=== PATIENT | male | born 1985 | race Caucasian/White ===

== ENCOUNTER 2024-03-06 09:37 | Outpatient (AMB) | payer OTHER, SELFPAY ==
--- NOTE | 2024-03-06 09:39 | A.OFFPC_ITS ---
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 - [facility], Dr. Romina farrell Last office visit/CPE - 12/27/2021 Last lab work - Several years ago Acute issue(s) - Anxiety - On Sertraline 50 mg daily. He ran out of refills about a week ago and has been taking same does from his who takes same medication. His anxiety has been controlled. No depression. - Not followed by a therapist or psychia trist and never been followed by them Past Medical History - Anxiety - Acid reflux Surgical History - None Family History - Mom: HTN - MGF: Alcoholism Social History - Nonsmoker. Does not vape. Drinks 2 bee rs on weekends. No recreational drugs - He has not been making healthy dietary choices. His work requires constant lifting and going up and down stairs; no structured exercise. He requests a ref erral to a dietitian - He notes history of poor sleep; troubl e falling and staying asleep; he has a 4-month-old child which makes sleeping challenging Health maintenance - Last eye exam was more than 10 years a go; referred to Ophthalmology - Last dental visit was 3 years ago; enc ouraged to schedule an appointment with his dentist for routine dental care. - Last tetanus vaccine was 5 years ago - He has not been vaccinated for the flu this season and plans to get vaccinated at the pharmacy [facility] Medical History (Updated 12/13/24 @ 10:14 by Suni Logan CNP) Acid reflux Anxiety Family History (Updated 03/06/24 @ 09:45 by Samantha Willams) Mother No family history of mental disorder Hypertension Sister No family history of mental disorder Multiple sclerosis Social History (Updated 12/27/21 @ 14:07 by DAJA Mandujano) Household Members: Spouse and Children Housing: House Alcohol intake: current Patient Tobacco Use Status: Never used Tobacco e-Cigarette/Vaping Use: Never Used Current occupational status: employed Current occupation: Accounts Payable Or Receivable Clerk Cognitive needs: No Hearing needs: No Vision needs: No Questionnaire PHQ-9 Over the last 2 weeks, how often have you been bothered by any of the following problems? 1. Little interest or pleasure in doing things: not at all 2. Feeling down, depressed, or hopeless: not at all 3. Trouble falling or staying asleep, or sleeping too much: several days 4. Feeling tired or having little energy: several days 5. Poor appetite or overeating: several days 6. Feeling bad about yourself - or that you are a failure or have let yourself or your family down: not at all 7. Trouble concentrating on things, such as reading the newspaper or watching television: not at all 8. Moving or speaking so slowly that other people could have noticed. Or the opposite - being so fidgety or restless that you have been moving around a lot more than usual: not at all 9. Thoughts that you would be better off or of hurting yourself in some way: not at all Total score: 3 Depression Screening Interpretation: Negative Depression Screening Done: Yes 78212 - PHQ-9 Billing: Yes Source: Developed by Drs. Alonzo Call, Angelique Alva, Michel Vaughn and colleagues, with an educational candido from [employer]. Thrive Questionnaire Date Thrive assessed: 03/06/24 I am a: Patient What is your living situation today?: I have a steady place to live Within the past 12 months, did the food you bought not last and you didn't have the money to get more?: Never true Within the past 12 months, did you worry whether your food would run out before you got money to buy more?: Never true Do you have trouble paying for medicines?: No Do you have trouble getting transportation to medical appointments?: No Do you have trouble paying your heating and electricity bill?: No Do you have trouble taking care of your child, family member or friend?: No Do you have trouble with day-to-day activities such as bathing, preparing meals, shopping, managing finances, etc.?: No Are you currently unemployed and looking for a job?: No Are you interested in more education?: No Please select the resources that you would like help with: None Currently or been in a relationship where the following occur: No concerns reported THRIVE Score: 0 AUDIT C Alcohol Use Questionnaire (AUDIT-C) 1. How often do you have a drink containing alcohol?: Monthly or less 2. How many drinks containing alcohol do you have on a typical day when you are drinking?: 1 or 2 3. How often do you have six or more drinks on one occasion?: Never Total Score: 1 Score Reviewed/Action Taken: Yes SJ-7 AMB Questionnaire SJ-7 Date SJ - 7 assessed: 03/06/24 Feeling nervous, anxious, or on edge: 1 = Several days Not being able to stop or control worryin = Not at all Worrying too much about different things: 0 = Not at all Trouble relaxin = Not at all Being so restless that it is hard to sit still: 0 = Not at all Becoming easily annoyed or irritable: 0 = Not at all Feeling afraid as if something awful might happen: 0 = Not at all Total SJ-7 score (0-4 normal; 5-9 mild; 10-14 moderate; 15-21 severe): 1 Source: Developed by Drs. Alonzo Call, Angelique Alva, Michel Vaughn and colleagues, with an educational candido from [employer]. SJ-7 Assessment Billing SJ-7 Assessment Tool: SJ-7 Assessment 73837 Review of Systems Const Details: Denies chills, Denies fatigue, Denies fever(s), Denies headache(s) and Denies weakness HEENT Denies change in vision, Denies dizziness, Denies headache(s), Denies hearing loss, Denies nasal congestion, Denies sinus pain, Denies sinus pressure and Denies sore throat Card Denies chest pain, Denies lightheadedness, Denies dyspnea and Denies other (palpitations) Resp Denies cough, Denies dyspnea and Denies wheezing GI Denies abdominal pain, Denies melena, Denies hematochezia, Denies change in bowel habits, Denies dyspepsia and Denies nausea Denies hematuria and Denies dysuria Musc Denies abnormal gait, Denies myalgias, Denies arthralgias, Denies numbness and Denies tingling Skin/Breast Denies rash, Denies unusual bruising and Denies wounds Neuro Denies abnormal gait, Denies dizziness, Denies headache(s), Denies memory loss, Denies numbness, Denies Sensory deficit (Neuro), Denies tingling and Denies weakness Psych Denies anxiety, Denies depression and Denies memory loss Endo Denies cold intolerance, Denies fatigue, Denies heat intolerance, Denies polydipsia and Denies polyuria Cortes/Lymph Denies easy bleeding and Denies easy bruising Aller/Immun Denies wheezing Physical exam (Primary Care) Vital Signs: Last Vital Signs Temp 98.2 F 03/06/24 09:46 Pulse 71 03/06/24 09:46 Resp 16 03/06/24 09:46 BP 122/77 03/06/24 09:46 Pulse Ox 96 03/06/24 09:46 Oxygen Delivery Method Room Air 03/06/24 09:46 BMI result Body Mass Index 30.8 Tobacco/Smoking Status: Tobacco use Status Tobacco use date assessed 03/06/24 03/06/24 09:50 Patient Tobacco Use Status Never used Tobacco 03/06/24 09:43 e-Cigarette/Vaping Use Never Used 03/06/24 09:43 PHQ-9: PHQ-9 Score PHQ-9: Total score 3 03/06/24 11:36 Depression Screening Interpretation: Negative Thrive Assessment: Date of Thrive Assessment Date Thrive assessed 03/06/24 03/06/24 09:43 Currently or been in a relationship where the following occur: No concerns reported Const Other: General: no acute distress, well developed, alert and awake Nutritional Appearance: well nourished Orientation/consciousness: patient oriented x3 HENMT Head: Yes normocephalic and Yes atraumatic Ears: hearing grossly normal bilaterally and TM's normal bilaterally General nose exam: Normal external nose present and Normal nares present Mouth: Normal oral and palatal mucosa present and moist mucous membranes Teeth and gingiva: dentition normal Throat: Yes oropharynx normal Eyes Pupils: Equal, round and reactive pupils present and Pupil accommodation reflex normal EOM: EOMs intact bilaterally Neck Neck: Yes normal visual inspection, Yes no lymphadenopathy and Yes trachea midline Thyroid: Thyroid normal Carotids: no bruits Lymphatic: no lymphadenopathy noted Chest Chest palpation & inspection: normal inspection of the chest Resp Effort & Inspection: normal respiratory effort Auscultation: clear to auscultation bilaterally Cardio Rate: regular rate Rhythm: regular rhythm Heart sounds: S1 normal heart sound present, S2 normal heart sound present, no gallops, no murmurs and no rubs Bruits: no abdominal aortic bruits and no carotid bruits GI Palpation (GI): No Abdominal aortic bruit present, Soft to palpation, nontender, No hepatosplenomegaly present and No Rebound tenderness present Auscultation: normal bowel sounds General: Yes no CVA tenderness Back/Spine/Pelvis Back: no CVA tenderness Cervical Spine: cervical ROM normal and No Cervical spine tenderness Thoracic/Lumbar Spine: thoraco-lumbar ROM normal, No pain with thoraco-lumbar ROM, No thoracic spinal tenderness and No lumbar spinal tenderness Skin General: warm and dry. Normal skin color. Normal skin turgor Lesions: no lesions Rashes: no rashes Trauma: no lacerations or abrasions Wounds: no wounds Nails: normal Neuro General: patient oriented x3, gait normal and CN's II-XI intact bilaterally Cranial nerves: Yes Equal, round and reactive pupils present Cognition (Neuro): normal cognition Gait exam (Neuro): Normal gait present Motor exam (neuro): 5/5 motor strength present throughout Sensory Exam: No Sensory deficit (Neuro) Deep tendon reflexes (DTR's): Right patellar reflex intensity grade: 2+ and Left patellar reflex intensity grade: 2+ Extrem General: Yes normal to inspection, No edema and No calf tenderness Psych Appearance: grossly normal Affect: normal affect Attitude: cooperative Thought process: Normal thought process present Coding Level of Care Code Est Pt Level 3 (92335) New Pt Prev Care 18-39yr(35131 Diagnoses Normal physical exam Z00.00 Anxiety F41.9 Sleep disturbance G47.9 Obesity (BMI 30.0-34.9) E66.811 Routine eye exam Z01.00 Laboratory tests ordered as part of a complete physical exam (CPE) Z00.00 Additional Codes SJ-7 Assessment Billing - SJ-7 Assessment Tool: SJ-7 Assessment 04641 ([id number]) PHQ-9 - 53432 - PHQ-9 Billing: Yes ([id number]) Assessment & Plan Assessment & Plan (1) Normal physical exam: Code(s): Z00.00 - Encounter for general adult medical examination without abnormal findings Category: Medical Plan: No significant physical restrictions or limitations noted. Healthy diet and routine exercise encouraged. Advised to get fasting lab work done and follow-up in 2-3 weeks for telehealth visit for labs review or return sooner with symptoms or concerns. Verbalized understanding and agreed with the plan. (2) Anxiety: Code(s): F41.9 - Anxiety disorder, unspecified Category: Medical Plan: Controlled anxiety symptoms. Continue current treatment regimen. Sertraline refill sent to the pharmacy. Monitor anxiety symptoms and follow-up with worsening or new symptoms. (3) Sleep disturbance: Code(s): G47.9 - Sleep disorder, unspecified Category: Medical Plan: Instructed sleep hygiene and routine exercise encouraged to promote sleep. Follow-up with worsening or new symptoms. Verbalized understanding and agreed with the plan. (4) Obesity (BMI 30.0-34.9): Code(s): E66.811 - Obesity, class 1 Category: Medical Plan: He currently weighs 215 lb, BMI is 30.8. He has been making poor dietary choices. Healthy diet and routine exercise encouraged. Referred to [facility] dietitian. (5) Routine eye exam: Code(s): Z01.00 - Encounter for examination of eyes and vision without abnormal findings Category: Medical Plan: Last eye exam was over 10 years ago. Referred to Ophthalmology for routine eye exam. (6) Laboratory tests ordered as part of a complete physical exam (CPE): Code(s): Z00.00 - Encounter for general adult medical examination without abnormal findings Category: Medical Plan: Fasting labs ordered as part of a complete physical exam. Advised to fast for at least 10 hours before getting labs drawn. May drink water Verbalized understanding and agreed with treatment plan. Orders: Orders Complete Blood Count Auto Diff Today Z00.00 - Encounter for general adult medical examination without abnormal findings TSH reflex Free T4 Today Z00.00 - Encounter for general adult medical examination without abnormal findings UA CC w/rflx Micro + Cult Today Z00.00 - Encounter for general adult medical examination without abnormal findings Comprehensive Grants. Panel Fast Today Z00.00 - Encounter for general adult medical examination without abnormal findings Lipid Panel Today Z00.00 - Encounter for general adult medical examination without abnormal findings Referrals Nutrition/Dietitian Referral E66.811 - Obesity, class 1 Ophthalmology Referral Z01.00 - Encounter for examination of eyes and vision without abnormal findings Medications: Refilled sertraline (Zoloft) 50 mg PO DAILY 90 tabs 1RF Z00.00 - Encounter for general adult medical examination without abnormal findings
[2024-03-06 09:46] VITALS: BP 122/77; PULSE 71; RESP 16; TEMP 36.8; O2SAT 96; BMI 30.8
== END 2024-03-06 13:13 | disposition home or self-care (01) ==
PROVIDERS: PCP Hospitalist; Visit Provider Nurse Practitioner Family
DX: Z00.00 Encounter for general adult medical examination without abnormal findings (principal); F41.9 Anxiety disorder, unspecified; E66.811 Obesity, class 1; Z68.30 Body mass index [BMI] 30.0-30.9, adult; G47.9 Sleep disorder, unspecified

== ENCOUNTER → 2024-03-06 09:37 | Outpatient (BNVA) | payer OTHER, SELFPAY | PROVIDERS: PCP Hospitalist; Visit Provider Nurse Practitioner Family | DX: Z00.00 Encounter for general adult medical examination without abnormal findings (principal); F41.9 Anxiety disorder, unspecified; G47.9 Sleep disorder, unspecified; E66.811 Obesity, class 1 | CPT/HCPCS: 96127; 99385 ==

== ENCOUNTER 2024-07-17 11:48 | Outpatient (AMB) | payer OTHER, SELFPAY ==
--- NOTE | 2024-07-17 11:51 | MHC.PC.OV ---
Vital Signs 07/17/24 11:54 Height 5 ft 10 in Weight 219 lb 4 oz BMI 31.5 BP 122/75 Blood Pressure Location Lt brachial Position Sitting Respiration 16 Pulse 82 Pulse Source Pulse Oximeter Temp 98.7 F Temp Source Oral Pulse Oximetry (%) 99 Oxygen Delivery Method Room Air Intake Visit Reasons: Arm pain Intake Note: patient here c/o right shoulder and arm pain for 3 weeks. 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 Allergies No Known Allergies Allergy (Verified 07/17/24 12:13) Medication List - Last Reconciled 07/17/24 by Suni Logan CNP sertraline (Zoloft) 50 mg PO DAILY Tobacco use date assessed: 07/17/24 Dental Screening Dental Screen Date: 07/17/24 Did you have a dental visit in the last 12 months?: No Did you have a dental problem in the last 6 months where you did not have access to dental care?: No Was dental information given to patient?: Patient has dentist HPI HPI Comments History of Present Illness Details 38-year-old male presents with complaints of right shoulder sharp pain which radiates to the entire right arm. His symptoms have been ongoing for the past 3 weeks. He experiences the pain only when picking up objects or his children. He wakes with sharp pain to his shoulder and numbness to his right hand when lying on his right side. He is right-handed. 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 He denies fall, injury, or trauma. He denies acute symptoms at this time. [facility] Medical History (Updated 07/17/24 @ 12:29 by Suni Logan CNP) Acid reflux Anxiety Family History (Updated 03/06/24 @ 09:45 by Samantha Willams MA) Mother No family history of mental disorder Hypertension Sister No family history of mental disorder Multiple sclerosis Social History (Updated 12/27/21 @ 14:07 by DAJA Mandujano) Household Members: Spouse and Children Housing: House Alcohol intake: current Patient Tobacco Use Status: Never used Tobacco e-Cigarette/Vaping Use: Never Used Second Hand Smoke Exposure: No service: No Current occupational status: employed Current occupation: Counseling Aide Current occupational exposures/hazards: No Cognitive needs: No Hearing needs: No Vision needs: No Questionnaire PHQ-9 Over the last 2 weeks, how often have you been bothered by any of the following problems? 1. Little interest or pleasure in doing things: not at all 2. Feeling down, depressed, or hopeless: not at all 3. Trouble falling or staying asleep, or sleeping too much: more than half the days 4. Feeling tired or having little energy: several days 5. Poor appetite or overeating: nearly every day 6. Feeling bad about yourself - or that you are a failure or have let yourself or your family down: not at all 7. Trouble concentrating on things, such as reading the newspaper or watching television: several days 8. Moving or speaking so slowly that other people could have noticed. Or the opposite - being so fidgety or restless that you have been moving around a lot more than usual: not at all 9. Thoughts that you would be better off or of hurting yourself in some way: not at all Total score: 7 Depression Screening Interpretation: Positive Depression Screening Done: Yes Source: Developed by Drs. Alonzo Call, Angelique Alva, Michel Vaughn and colleagues, with an educational candido from [employer]. Thrive Questionnaire Date Thrive assessed: 03/06/24 I am a: Patient What is your living situation today?: I have a steady place to live Within the past 12 months, did the food you bought not last and you didn't have the money to get more?: Never true Within the past 12 months, did you worry whether your food would run out before you got money to buy more?: Never true Do you have trouble paying for medicines?: No Do you have trouble getting transportation to medical appointments?: No Do you have trouble paying your heating and electricity bill?: I choose not to answer this question Do you have trouble taking care of your child, family member or friend?: No Do you have trouble with day-to-day activities such as bathing, preparing meals, shopping, managing finances, etc.?: No Are you currently unemployed and looking for a job?: No Are you interested in more education?: No Please select the resources that you would like help with: None Currently or been in a relationship where the following occur: No concerns reported THRIVE Score: 0 AUDIT C Alcohol Use Questionnaire (AUDIT-C) 1. How often do you have a drink containing alcohol?: 2-4 times a month 2. How many drinks containing alcohol do you have on a typical day when you are drinking?: 1 or 2 3. How often do you have six or more drinks on one occasion?: Never Total Score: 2 SJ-7 AMB Questionnaire SJ-7 Date SJ - 7 assessed: 03/06/24 Feeling nervous, anxious, or on edge: 0 = Not at all Not being able to stop or control worryin = Several days Worrying too much about different things: 1 = Several days Trouble relaxin = Several days Being so restless that it is hard to sit still: 0 = Not at all Becoming easily annoyed or irritable: 1 = Several days Feeling afraid as if something awful might happen: 0 = Not at all Total SJ-7 score (0-4 normal; 5-9 mild; 10-14 moderate; 15-21 severe): 4 Source: Developed by Drs. Alonzo Call, Angelique Alva, Michel Vaughn and colleagues, with an educational candido from [employer]. Review of Systems Const Details: Const Denies chills, Denies fatigue, Denies fever(s), Denies headache(s) and Denies weakness ENT Denies dizziness and Denies headache(s) Card Denies chest pain, Denies lightheadedness, Denies dyspnea and Denies other (Palpitations) Resp Denies cough, Denies dyspnea, Denies wheezing and Denies other ( shortness of breath) GI Denies abdominal pain, Denies melena, Denies hematochezia, Denies change in bowel habits, Denies dyspepsia and Denies nausea Denies hematuria and Denies dysuria Musc Reports as per HPI Skin/Breast Denies rash, Denies unusual bruising and Denies wounds Neuro Denies abnormal gait, Denies dizziness, Denies headache(s), Denies memory loss, Denies numbness, Denies Sensory deficit (Neuro), Denies tingling and Denies weakness Psych Denies anxiety, Denies depression, Denies memory loss Endo Denies cold intolerance, Denies fatigue, Denies heat intolerance, Denies polydipsia and Denies polyuria Aller/Immun Denies wheezing Physical exam (Primary Care) Vital Signs: Last Vital Signs Temp 98.7 F 07/17/24 11:54 Pulse 82 07/17/24 11:54 Resp 16 07/17/24 11:54 BP 122/75 07/17/24 11:54 Pulse Ox 99 07/17/24 11:54 Oxygen Delivery Method Room Air 07/17/24 11:54 BMI result Body Mass Index 31.5 Tobacco/Smoking Status: Tobacco use Status Tobacco use date assessed 07/17/24 07/17/24 11:57 Patient Tobacco Use Status Never used Tobacco 07/17/24 11:57 e-Cigarette/Vaping Use Never Used 07/17/24 11:57 PHQ-9: PHQ-9 Score PHQ-9: Total score 7 07/17/24 11:57 Depression Screening Interpretation: Positive Thrive Assessment: Date of Thrive Assessment Date Thrive assessed 03/06/24 07/17/24 11:57 Currently or been in a relationship where the following occur: No concerns reported Const Other: General: no acute distress and well developed Nutritional Appearance: well nourished Orientation/consciousness: patient oriented x3 HENMT Head: Yes normocephalic and Yes atraumatic Eyes General: appearance normal, both eyes and all related structures Pupils: Equal, round and reactive pupils present EOM: EOMs intact bilaterally Resp Effort & Inspection: normal respiratory effort Auscultation: clear to auscultation bilaterally Cardio Rate: regular rate Rhythm: regular rhythm Heart sounds: S1 normal heart sound present, S2 normal heart sound present, no gallops, no murmurs and no rubs GI Palpation (GI): No Abdominal aortic bruit present, Soft to palpation, nontender, No hepatosplenomegaly present and No Rebound tenderness present Auscultation: normal bowel sounds General: Yes no CVA tenderness Back/Spine/Pelvis Back: no CVA tenderness Cervical Spine: cervical ROM normal and No Cervical spine tenderness Thoracic/Lumbar Spine: thoraco-lumbar ROM normal, No pain with thoraco-lumbar ROM, No thoracic spinal tenderness and No lumbar spinal tenderness Extrem General: Yes normal to inspection, No edema and No calf tenderness. ROM of the right shoulder/arm WNL, no point tenderness, no overt injury or trauma Skin General: warm and dry. Normal skin color. Normal skin turgor Neuro General: patient oriented x3, gait normal and no focal neuro deficit Cranial nerves: Yes Equal, round and reactive pupils present Cognition (Neuro): normal cognition Gait exam (Neuro): Normal gait present Sensory Exam: No Sensory deficit (Neuro) Psych Appearance: grossly normal Affect: normal affect Attitude: cooperative Thought process: Normal thought process present Coding Level of Care Code Est Pt Level 3 (30248) Diagnoses Right arm pain M79.601 Assessment & Plan Assessment & Plan (1) Right arm pain: Code(s): M79.601 - Pain in right arm Category: Medical Plan: ROM of the right shoulder/arm WNL, no point tenderness, no overt injury or trauma. Likely myalgia or tendinitis of the shoulder. Naproxen 500 mg twice daily as needed ordered; advised to take with food. Avoid heavy lifting until healed. Chest x-ray ordered. Advised to get outstanding fasting lab work done and follow-up for labs review and anxiety. Return sooner with symptoms or concerns. Verbalized understanding and agreed with treatment plan. Orders: Orders XR shoulder RT 1V Today M79.601 - Pain in right arm Medications: New naproxen 500 mg PO BID PRN 60 tabs 0RF pain
[2024-07-17 11:54] VITALS: BP 122/75; PULSE 82; RESP 16; TEMP 37.1; O2SAT 99; BMI 31.5
== END 2024-07-17 12:33 | disposition home or self-care (01) ==
LOC: HO.HMCFM 11:49
PROVIDERS: PCP Hospitalist; Visit Provider Nurse Practitioner Family
DX: M79.601 Pain in right arm (principal)

== ENCOUNTER → 2024-07-17 11:48 | Outpatient (BNVA) | payer OTHER, SELFPAY | PROVIDERS: PCP Hospitalist; Visit Provider Nurse Practitioner Family ==